=== PATIENT | female | born 1935 | race Caucasian/White ===

== ENCOUNTER → 2017-01-03 | Outpatient (CLI) | payer MEDICARE, OTHER ==
[~2017-01-03] MED LIST: ASPIRIN 32325 MG/TAB PO; ATIVAN 1MG T1 MG/TAB PO; COLACE 100100 MG/CAP PO; GENTLE LAXATIVE10 MG RC; HCTZ 25MG TAB25 MG PO; LIPITOR 10MG10 MG PO; MYLANTA 150 ML150 M1 PO; NORVASC 5MG5 MG/TAB PO; ONE DAILY1 TA1 PO; PRILOSEC 20MG20 MG PO; PRINIVIL20 MG PO; TIROSINT100 MCG PO; TYLENOL 325MG325 MG PO; ULTRAM 50MG TAB50 MG PO; VESICARE10 MG PO
== END ==
LOC: ZCOL.LAB 16:10
DX: Z01.812 Encounter for preprocedural laboratory examination (principal); Z86.14 Personal history of Methicillin resistant Staphylococcus aureus infection

== ENCOUNTER → 2017-04-15 | Outpatient (CLI) | payer MEDICARE, OTHER ==
[2017-04-15 09:12] LABS: SYNOVIAL FL. MONONUCLEAR 93.6 % (0-75); SYNOVIAL FLUID RBC 11000 /mm3 (0-0); SYNOVIAL FLUID WBC 204 /mm3 (200-600)
[2017-04-15 09:18] LABS: SYNOVIAL FLUID APPEARANCE HAZY; SYNOVIAL FLUID COLOR AMBER
== END ==
LOC: COL.RAD 07:18
PROVIDERS: Orthopaedic Surgery
DX: M25.551 Pain in right hip (principal); Z98.890 Other specified postprocedural states

== ENCOUNTER → 2017-11-21 | Outpatient (CLI) | payer MEDICARE, OTHER | LOC: COL.LAB 14:55 | DX: Z01.812 Encounter for preprocedural laboratory examination (principal) ==

== ENCOUNTER → 2018-03-27 | Outpatient (CLI) | payer MEDICARE, OTHER ==
[2018-03-27 12:20] LABS: HEMATOCRIT 43.6 % (37.0-47.0); HEMOGLOBIN 14.5 g/dl (12.5-16.0); MEAN CELL VOLUME 91 fl (80.0-100.0); MEAN CORPUSCULAR HEMOGLOBIN 30 pg (27.0-31.0); MEAN CORPUSCULAR HGB CONC 33 g/dl (33.0-37.0); MEAN PLATELET VOLUME 10.5 fl (7.4-10.4); PLATELET COUNT 180 K/mm3 (130-400); RED BLOOD COUNT 4.82 M/mm3 (4.10-5.30); REDCELL DISTRIBUTION WIDTH-CV 12.9 % (11.5-14.5)
[2018-03-27 12:46] LABS: ERYTHROCYTE SEDIMENTATION RATE 5 mm/hr (0-30)
== END ==
LOC: COL.LAB 11:41
PROVIDERS: Orthopaedic Surgery
DX: Z96.641 Presence of right artificial hip joint (principal); Z98.890 Other specified postprocedural states

== ENCOUNTER → 2018-04-25 | Outpatient (REF) | LOC: ZMSC 09:07 | DX: M25.551 Pain in right hip (principal); Z96.641 Presence of right artificial hip joint ==

== ENCOUNTER → 2018-05-15 | Outpatient (REF) ==
[2018-05-15 11:40] LABS: SYNOVIAL FL. MONONUCLEAR 5.7 % (0-75); SYNOVIAL FLUID APPEARANCE TURBID; SYNOVIAL FLUID COLOR RED; SYNOVIAL FLUID RBC 117000 /mm3 (0-0); SYNOVIAL FLUID WBC 7554 /mm3 (200-600)
== END ==
LOC: ZMSC 11:11
PROVIDERS: Orthopaedic Surgery
DX: S71.001A Unspecified open wound, right hip, initial encounter (principal)

== ENCOUNTER 2018-10-02 14:45 | Outpatient (RCR) | payer MEDICARE, OTHER ==
[2018-10-08] MEDS ORDERED: MOBIC 7.5MG7.5 MG PO (08:19)
== END 2018-11-06 13:15 | disposition home or self-care (01) ==
LOC: WSPT 14:45
DX: M16.11 Unilateral primary osteoarthritis, right hip (principal); S76.011A Strain of muscle, fascia and tendon of right hip, initial encounter

== ENCOUNTER → 2018-10-09 | Outpatient (CLI) | payer MEDICARE, OTHER ==
[~2018-10-09] MED LIST changes: +MOBIC 7.5MG7.5 MG PO
[2018-10-09 11:41] LABS: HEMATOCRIT 38.5 % (37.0-47.0); HEMOGLOBIN 12.5 g/dl (12.5-16.0); MEAN CELL VOLUME 91 fl (80.0-100.0); MEAN CORPUSCULAR HEMOGLOBIN 29 pg (27.0-31.0); MEAN CORPUSCULAR HGB CONC 33 g/dl (33.0-37.0); MEAN PLATELET VOLUME 10.2 fl (7.4-10.4); PLATELET COUNT 206 K/mm3 (130-400); RED BLOOD COUNT 4.25 M/mm3 (4.10-5.30); REDCELL DISTRIBUTION WIDTH-CV 13.2 % (11.5-14.5)
[2018-10-09 12:22] LABS: ERYTHROCYTE SEDIMENTATION RATE 18 mm/hr (0-30)
== END ==
LOC: COL.RAD 10:24
PROVIDERS: Orthopaedic Surgery
DX: M25.551 Pain in right hip (principal); Z96.641 Presence of right artificial hip joint

== ENCOUNTER → 2018-10-13 | Outpatient (CLI) | payer MEDICARE, OTHER | LOC: COL.RAD 10:00 | DX: M25.551 Pain in right hip (principal) | CPT/HCPCS: A9503 ==

== ENCOUNTER 2020-04-08 19:56 | Observation (INO) | payer MEDICARE, OTHER ==
[~2020-04-08] VITALS: Ht 172.7 cm; Wt 93.2 kg
[2020-04-08 20:22] LABS: BASO # 0.1 (0.0-0.2); BASO % 0.5 % (0.0-2.0); EOS # 0.3 (0.0-0.7); EOS % 2.7 % (0-4.0); GRAN # 7.8 (1.4-6.5); GRAN % 73.2 % (42.2-75.2); HEMATOCRIT 37.9 % (37.0-47.0); HEMOGLOBIN 12.1 g/dl (12.5-16.0); LYMPH # 1.8 (1.2-3.4); LYMPH % 16.6 % (20.0-51.0); MEAN CELL VOLUME 94 fl (80.0-100.0); MEAN CORPUSCULAR HEMOGLOBIN 30 pg (27.0-31.0); MEAN CORPUSCULAR HGB CONC 32 g/dl (33.0-37.0); MONO # 0.7 (0.1-0.6); MONO % 6.6 % (1.7-9.3); PLATELET COUNT 253 K/mm3 (130-400); RED BLOOD COUNT 4.02 M/mm3 (4.10-5.30)
[2020-04-08 20:29] LABS: PROTHROMBIN TIME 11.5 SECONDS (9.7-12.8)
[2020-04-08 20:37] LABS: ALANINE AMINOTRANSFERASE 18 U/L (4-34); ALBUMIN 4.4 gm/dL (3.5-5.0); ALKALINE PHOSPHATASE 65 U/L (50-136); ANION GAP 11 mmol/L (7-16); AST,SGOT 22 U/L (15-37); BILIRUBIN,TOTAL 0.8 mg/dL (0.0-1.0); BLOOD UREA NITROGEN 25 mg/dL (7-17); CALCIUM 10.5 mg/dL (8.4-10.2); CARBON DIOXIDE 22 mmol/L (22-30); CHLORIDE 103 mmol/L (98-107); CREATINE KINASE 69 U/L (30-135); GLUCOSE 114 mg/dL (74-106); LIPASE 149 U/L (23-300); POTASSIUM 4.8 mmol/L (3.4-5.0); SODIUM 135 mmol/L (137-145); TOTAL PROTEIN 7.4 gm/dL (6.4-8.2)
[2020-04-08 20:38] LABS: C-REACTIVE PROTEIN < 0.5 mg/dL (0.0-0.9)
[2020-04-08 20:46] LABS: TROPONIN-I < 0.012 ng/mL (0.000-0.035)
[2020-04-08] MEDS ORDERED: HYGROTON 2525 MG/TAB (23:08)
[2020-04-08] MEDS ORDERED: KLOR-CON 1010 MEQ PO (23:09)
[2020-04-08] MEDS ORDERED: NORVASC 5MG5 MG/TAB PO (23:10)
[2020-04-08] MEDS ORDERED: MICARDIS40 MG PO (23:11)
[2020-04-08] MEDS ORDERED: NEXIUM 40MG40 MG PO (23:11)
[2020-04-08] MEDS ORDERED: NEURONTIN300 MG/CAP PO (23:12)
--- NOTE | 2020-04-09 00:15 | NUR ---
Pt. arrived to the floor via stretcher. Pt. able to ambulate to the bed with 1 assist. Pt. is A&OX3, assessment complet. INT to lt. hand patent. Pt. denies pain. NG tube set to LIS. Pt. tolerating. Pt. denies further needs. Call light within reach.
[2020-04-09 04:51] VITALS: BP 124/52; PULSE 80; TEMP 98.4
[2020-04-09 08:00] VITALS: BP 144/62; PULSE 70; TEMP 97.9
--- NOTE | 2020-04-09 09:45 | NUR ---
NG discontinued as ordered by Dr Cosme. Patient tolearted well. Patient is hoping to discharge later this morning. Explained she needs to be able to eat and drink without nausea before discharge. IVF's discontinued as well. No other changes at this time. Call light within reach.
[2020-04-09] MEDS ORDERED: PROTONIX 40MG T40 MG PO (09:46)
[2020-04-09 12:03] VITALS: BP 115/43; PULSE 59; TEMP 97.4
--- NOTE | 2020-04-09 12:30 | NUR ---
Patient is discharging home. Discussed discharge instructions with patient and her daughter. Answered any questions they had. INT discontinued. Explained office will call with follow up appointment time on Saturday. Explained she has a prescription that was sent to her [facility] for protonix. Copies of discharge instructions sent with eliseo. All belonging packed up and sent with patient. Patient walked out via wheel chair.
--- NOTE | 2020-04-09 13:08 | NUR ---
SW met with patient to complete intake. Up on arriving patient states that she is going home today and will need nothing upon DC. Patient states that she lives alone in [facility], daughter is Sheila [phone]. Patient states that her daughter is also appointed as her DPOA-HC. Patient provides that she utilizes a walker, is independent with ADL's, PCP is Dr. Arroyo, is able to afford her medications and obtains them from [facility] in . Patient states that she does not utilize home health services and will not need such services upon DC. Patient provides that she has not concerns in regards to DC and is ready to do so as soon as possible. SW will continue to follow.
== END 2020-04-09 12:45 | disposition home or self-care (01) ==
LOC: COL.ER 19:56 → SURG 22:14
PROVIDERS: Emergency Medicine; ADMIT Surgery
DX: R07.9 Chest pain, unspecified (principal); I10 Essential (primary) hypertension; E78.5 Hyperlipidemia, unspecified; Z85.828 Personal history of other malignant neoplasm of skin; Z90.49 Acquired absence of other specified parts of digestive tract; Z90.710 Acquired absence of both cervix and uterus; Z79.82 Long term (current) use of aspirin; Z87.891 Personal history of nicotine dependence; Z88.2 Allergy status to sulfonamides; Z88.5 Allergy status to narcotic agent
CPT/HCPCS: C9113; G0378; J1170; J2405; J3010; J7030; Q9967

== ENCOUNTER → 2021-09-13 | Outpatient (CLI) | payer MEDICARE, OTHER ==
[~2021-09-13] MED LIST changes: +HYGROTON 2525 MG/TAB; +KLOR-CON 1010 MEQ PO; +MICARDIS40 MG PO; +NEURONTIN300 MG/CAP PO; +NEXIUM 40MG40 MG PO; +PROTONIX 40MG T40 MG PO
== END ==
LOC: COL.RAD 13:39
DX: M17.12 Unilateral primary osteoarthritis, left knee (principal); M11.262 Other chondrocalcinosis, left knee; I70.202 Unspecified atherosclerosis of native arteries of extremities, left leg

== ENCOUNTER 2021-10-30 08:03 | Observation (INO) | payer MEDICARE, OTHER ==
[2021-10-30] VITALS (11 sets, daily range): BP systolic 103–151; BP diastolic 55–82; PULSE 56–85; TEMP 96.5–98
[~2021-10-30] VITALS: Ht 170.2 cm; Wt 85.0 kg
[~2021-10-30 08:03] MED LIST changes: -HYGROTON 2525 MG/TAB; +HYGROTON 2525 MG/TAB PO
[2021-10-30] MEDS ORDERED: LEVOXYL0.1 MG PO (08:55)
--- NOTE | 2021-10-30 10:21 | NUR ---
1000 - EVENT SALES ASSISTANT contacted for IV assistance; RN was told to contact IV services. 1005 - IV services was contacted regarding PT. 1010 - IV services arrives. x2 attempt; 22G in R FA flushes w/ resistance, no tubing drips noted. 1020 - EVENT SALES ASSISTANT contacted regarding IV, who suggested Midline access. Tiffanie notified who stated PICC line is perfered. Verbal orders recieved from DR Recinos for either PICC or Midline access. RN contacted IV services for update. Orders in CPOE.
--- NOTE | 2021-10-30 12:00 | NUR ---
1145 - Two PT belongings bag brought to PACU by RN; bags are labeled. Glasses and dentures in bag w/ clothes.
--- NOTE | 2021-10-30 15:25 | NUR ---
Received patient to room 328 at 1525. Reported given by OR nurse. Patient alert , drowsy but easily to arouse. PICC placed on right upper arm dry intact. Left knee aquacell dressing intact. Pulse papable on bilateral lower extremities. Vital signs stable. ICE water place at the bedside and call mcclain within reach. Family member at the bedside. Will continue monitoring vital signs.
--- NOTE | 2021-10-30 16:40 | NUR ---
Patient resting in bed. Family member at bed side. VSS. Dressing at the left knee dry and intact. ICE pack in place. Patient denies pain. Will continue to monitor vital signs.
--- NOTE | 2021-10-30 18:17 | NUR ---
Patient is sitting up in bed eating dinner. Patient denies episodes of n/v and pain. Left knee dressing dry and intact. SCD on and PICC line intact. VSS. Scheduled tylenol administered per orders. Call mcclain within reach.
[2021-10-30] MEDS ORDERED: K-TAB20 PO (20:10)
--- NOTE | 2021-10-30 22:41 | NUR ---
PATIENT IN BED ON ROOM ENTRY. ALERT AND ORIENTED. HS MEDS PER EMAR. STATES SHE IS STARTING TO HAVE SOME TINGLING IN HER LEGS BUT NO PAIN. L KNEE CDI WITH CECILIA WRAP. PICC TO SARAH PATENT WITH GOOD BLOOD RETURN. SCDS IN PLACE. PUREWICK APPLIED. DENIES ADDITIONAL NEEDS. CALL LIGHT IN REACH.
[2021-10-31] VITALS (7 sets, daily range): BP systolic 98–135; BP diastolic 45–87; PULSE 55–68; TEMP 97.2–98.5
[2021-10-31 06:22] LABS: HEMATOCRIT 27.9 % (37.0-47.0); HEMOGLOBIN 8.9 g/dl (12.5-16.0)
[2021-10-31 06:27] LABS: CALCIUM 9.2 mg/dL (8.4-10.2); CREATININE, serum 2.17 mg/dL (0.57-1.11); POTASSIUM 4.7 mmol/L (3.5-4.5)
--- NOTE | 2021-10-31 10:17 | NUR ---
PT UP TO RECLINER AFTER USING BSC. PT VOIDED AND HAD LG BM. VSS, PT TO DISCHARGE HOME WHEN CRITERIA MET.
--- NOTE | 2021-10-31 13:01 | NUR ---
terrazzo worker apprentice met with patient to complete intake and discuss discharge plan. Patient's son Matthew ([phone]) is present at bedside. Matthew is in town to aid his mother's recovery until Saturday and then his sister Sheila ([phone]) is coming to [facility] to stay with her for another week. Patient currently lives in [place] at home alone. She has been independent with her ADL's and utilizes a rollator walker to assist with mobility. She has no home oxygen needs. She does have a CPAP machine that she uses at night but states she doesn't know where she got it from and [employer]. Home Medical will not cover any replacement supplies. PCP is Dr. Arroyo and she utilizes [facility] in [place] for short term medications and mail in medications for detention needs. Patient reports that she does have a DPOA-HC established listing both of her children. Matthew inquires about how his mother can access her VA benefits and what she qualifies for. Informed him that i don't have access to that information but the contact information for the social media designer at the [facility] is provided to him. At this time, Dr. Recinos's PA, Lucille enters the room. Ольга calls and places his sister Sheila on speaker phone. SW explained that at this time, she does not qualify for skilled rehab due to her MCR status during this admission unless they were to private pay. Educated them that she would be able to go home with home health PT/OT and nursing. [facility], the patient had not had a PT/OT eval. Family is agreeable to HH through [facility]. After meeting ARGENTINA Adkins contacts me asking about our IPR unit. Informed her i can talk with the IPR director but we won't know about qualification until after she works with PT/OT. Referral made to IPR director. Discharge plan: Home with HH vs. IPR
--- NOTE | 2021-10-31 15:31 | NUR ---
Per IPR director, patient does not meet qualifications for IPR unit.
--- NOTE | 2021-11-01 00:43 | NUR ---
PATIENT ALERT AND ORIENTED X4, PICC LINE TO RIGHT UPPER ARM, DENIES PAIN, REFUSED SENOKOT AT HS AND TYLENOL AT THIS TIME, WITH AQUACEL DRESSING ON LEFT KNEE CLEAN DRY AND INTACT, WEARS CPAP, NO FURTHER NEEDS OR CONCERNS AT THIS TIME, CALL LIGHT AND PERSONAL ITEMS WITHIN REACH.
[2021-11-01 04:17] VITALS: BP 120/60; PULSE 62; TEMP 98.6
[2021-11-01 06:28] LABS: CALCIUM 8.4 mg/dL (8.4-10.2); CREATININE, serum 1.95 mg/dL (0.57-1.11); POTASSIUM 4.5 mmol/L (3.5-4.5)
[2021-11-01 06:42] LABS: HEMATOCRIT 28.4 % (37.0-47.0)
[2021-11-01 07:47] VITALS: BP 120/56; PULSE 77; TEMP 98.3
--- NOTE | 2021-11-01 09:37 | NUR ---
Initial visit; Patient thanked dermatology nurse practitioner for looking in on her and offering God's blessings. It appeared that Patient was not wanting company. Community Fundraiser wished her well.
[2021-11-01 12:10] VITALS: BP 112/47; PULSE 59; TEMP 97.4
[2021-11-01 16:19] VITALS: BP 131/86; PULSE 72; TEMP 98.4
--- NOTE | 2021-11-01 16:51 | NUR ---
farmworker pullet farm met with patient and her son, Matthew #[phone] to discuss discharge planning. Patient had a total joint replacement and desires to return home upon discharge. Patient lives alone, however, her son Matthew will stay with her until Saturday and then patient's daughter will be stayin for another week. Worker discussed nursing facility placement and home health. Patient states she wishes to return home with home health. Worker provides Medicare share[employer] for home health and patient chose [facility]. Worker provided referral to [facility] with faxed information. Fletcher with [facility] accepts patients on Saturday. Son Renato is aware of the above information. Patient's primary care is Dr Arroyo in [place]. Discharge plan is home with [facility].
[2021-11-01 20:20] VITALS: BP 134/66; PULSE 86; TEMP 97.2
[2021-11-01 23:45] VITALS: BP 138/71; PULSE 88; TEMP 98.1
--- NOTE | 2021-11-02 00:14 | NUR ---
PATIENT IN BED ON ROOM ENTRY. ALERT AND ORIENTED. HS MEDS PER EMAR. REFUSED STOOL SOFTENER DUE TO DIARRHEA. DENIES PAIN. L KNEE DRESSING CDI. TEDS IN PLACE. DENIES ADDITIONAL NEEDS. CALL LIGHT IN PLACE.
[2021-11-02 04:24] VITALS: BP 128/68; PULSE 90; TEMP 98.2
[2021-11-02 06:41] LABS: HEMATOCRIT 26.3 % (37.0-47.0); HEMOGLOBIN 8.6 g/dl (12.5-16.0)
[2021-11-02 06:56] LABS: CALCIUM 8.4 mg/dL (8.4-10.2); CREATININE, serum 1.7 mg/dL (0.57-1.11); POTASSIUM 4.6 mmol/L (3.5-4.5)
[2021-11-02 07:32] VITALS: BP 135/60; PULSE 81; TEMP 98.1
[2021-11-02] MEDS ORDERED: TYLENOL 500MG500 MG PO (08:48)
[2021-11-02] MEDS ORDERED: CELEBREX 200MG200 MG PO (08:48)
[2021-11-02] MEDS ORDERED: ASPIRIN E.C. 8181 MG PO (08:48)
[2021-11-02] MEDS ORDERED: FERRO-TIME325 MG PO (08:48)
[2021-11-02] MEDS ORDERED: VITAMIN C500 MG PO (08:49)
[2021-11-02] MEDS ORDERED: CEPHALEXIN500 M1 PO (09:56)
[2021-11-02] MEDS ORDERED: ULTRAM 50MG TAB50 MG PO (09:56)
[2021-11-02] MEDS ORDERED: ASPIRIN 81M81 MG/TA2 PO (09:56)
--- NOTE | 2021-11-02 10:00 | NUR ---
DR.SAMANI PETTIT. PATIENT CLEARED TO DISCHARGE HOME TODAY WITH HH. AWAITING DISCHARGE ORDERS.
--- NOTE | 2021-11-02 11:06 | NUR ---
Johny from [facility] arrives to unit to meet with the patient.niko TAPIA
--- NOTE | 2021-11-02 11:15 | NUR ---
[facility] AT BEDSIDE TO DC PICC LINE FOR DISCHARGE TODAY.
--- NOTE | 2021-11-02 11:38 | NUR ---
SW contacted [facility] who states that they declined the referral due to not being able to get to the patient's until 11/10. forest nursery worker met with the patient's son Matthew at bedside and informed of the above. Per Dragan he would like to go with [facility]. Phone call made to Raj at [facility] and informed that they are going to go with their agency. Patient's clinical updates and discharge orders faxed to [facility]. Discharge plan: Home with family support and [facility]
[2021-11-02 11:48] VITALS: BP 133/58; PULSE 67; TEMP 97.8
--- NOTE | 2021-11-02 13:10 | NUR ---
PATIENT DISCHARGING HOME WITH HH VIA WC TO PERSONAL VEHICLE WITH SON. GAVE DISCHARGE INSTRUCTIONS, E-SCRIPTS SENT, PICC LINE REMOVED BY [facility], AND DISCUSSED F/U APTS. ANSWERED QUESTIONS/CONCERNS. PATIENT IS DRESSED, PACKED AND ESCORTED OUT.
== END 2021-11-02 13:10 | disposition home health service (06) ==
LOC: SDCO 08:03 → SURG 15:25 → SDCO 15:26 → SURG 15:27 → SDCO 11-01 15:25 → SURG 11-02 13:10
PROVIDERS: ADMIT Orthopaedic Surgery
DX: M17.12 Unilateral primary osteoarthritis, left knee (principal); I10 Essential (primary) hypertension; E78.5 Hyperlipidemia, unspecified; K21.9 Gastro-esophageal reflux disease without esophagitis; G89.4 Chronic pain syndrome; E03.9 Hypothyroidism, unspecified; Z79.890 Hormone replacement therapy; Z79.899 Other long term (current) drug therapy; Z87.891 Personal history of nicotine dependence
CPT/HCPCS: OP; A9284; C1713; C1751; C1776; C1892; G0378; J0690; J1100; J1580; J1885; J2250; J2270; J2405; J2704; J2795; J3010; J3475; J7030; J7120

== ENCOUNTER → 2021-12-25 | Outpatient (CLI) | payer MEDICARE, OTHER ==
[~2021-12-25] MED LIST changes: +ASPIRIN 81M81 MG/TA2 PO; +ASPIRIN E.C. 8181 MG PO; +CELEBREX 200MG200 MG PO; +CEPHALEXIN500 M1 PO; +FERRO-TIME325 MG PO; +K-TAB20 PO; +LEVOXYL0.1 MG PO; +TYLENOL 500MG500 MG PO; +VITAMIN C500 MG PO
== END ==
LOC: COL.RAD 09:08
DX: M16.12 Unilateral primary osteoarthritis, left hip (principal); M47.816 Spondylosis without myelopathy or radiculopathy, lumbar region; Z96.659 Presence of unspecified artificial knee joint; Z96.641 Presence of right artificial hip joint
CPT/HCPCS: A9503